=== PATIENT | male | born 1990 ===

== ENCOUNTER 2016-08-09 12:48 | Emergency (ER) | payer OTHER ==
[2016-08-09 12:55] VITALS: BP 137/76; PULSE 85; RESP 16; TEMP 98.1; O2SAT 99
--- NOTE | 2016-08-09 13:02 | ED PDOC ---
Lower Extremity Pain/Injury Time Seen by Provider: 08/09/16 12:54 Chief Complaint (Nursing): Lower Extremity Problem/Injury History Per: Patient Additional Complaint(s): Pt. states for the past week he's had atraumatic R foot pain which is worsened with walking. Pt. states pain is greatest to the top of the foot and on the joint of the 1st toe. Denies trauma, fever, numbness, tingling, rash. Past Medical History Reviewed: Historical Data, Nursing Documentation, Vital Signs Vital Signs: Last Vital Signs Temp 98.1 F 08/09/16 12:51 Pulse 85 08/09/16 12:51 Resp 16 08/09/16 12:51 BP 137/76 08/09/16 12:51 Pulse Ox 99 08/09/16 12:51 - Medical History PMH: HIV - Family History Family History: States: Unknown Family Hx - Immunization History Hx Tetanus Toxoid Vaccination: No Hx Influenza Vaccination: No Hx Pneumococcal Vaccination: No - Home Medications Home Medications: Ambulatory Orders Medication Instructions Recorded Albuterol Sulfate [Proair Hfa] 1 puff IH Q6 PRN #1 inh 05/08/13 Azithromycin [Zithromax Z-Yifan] 250 mg PO DAILY #0 tab 05/08/13 Benzonatate [Tessalon Perles] 200 mg PO TID PRN #30 sgl 05/08/13 Meloxicam [Mobic] 1 - 2 tab PO DAILY PRN #30 tab 08/09/16 - Allergies Allergies/Adverse Reactions: Allergies Allergy/AdvReac Type Severity Reaction Status Date / Time No Known Allergies Allergy Verified 08/09/16 12:51 Review of Systems ROS Statement: Except As Marked, All Systems Reviewed And Found Negative Musculoskeletal: Positive for: Foot Pain Physical Exam - Physical Exam Appears: Positive for: Well, Non-toxic, No Acute Distress Skin: Positive for: Normal Color, Warm. Negative for: Rash Extremity: Positive for: Capillary Refill (< 2 seconds on both feet), Other (R foot with minimal swelling and tenderness on dorsum without warmth, erythema or break in skin integrity; no tenderness, swelling, warmth, or erythema over R 1st MTP.). Negative for: Calf Tenderness (b/l) Neurologic/Psych: Positive for: Alert, Oriented - ECG O2 Sat by Pulse Oximetry: 99 - Progress ED Course And Treament: Uric acid level ordered. Foot x-ray ordered. Disposition - Clinical Impression Clinical Impression: Foot pain - Patient ED Disposition Is Patient to be Admitted: No - Disposition Disposition: Routine/Home Disposition Time: 13:48 Condition: STABLE Prescriptions: Meloxicam [Mobic] 1 - 2 tab PO DAILY PRN #30 tab PRN Reason: Pain Instructions: Arthralgia (ED) Forms: [facility] ED School/Work Excuse Print Language: CZECH
--- NOTE | 2016-08-09 15:04 | RAD ---
PROCEDURE: Right Foot Radiographs. HISTORY: Pain. No history of recent/ related trauma provided COMPARISON: None. FINDINGS: BONES: Normal. No fracture. JOINTS: Normal. SOFT TISSUES: Normal. OTHER FINDINGS: None. IMPRESSION: No significant or acute findings to account for/ related to the clinical presentation.
== END 2016-08-09 13:59 | disposition home or self-care (01) ==
LOC: H.ER 12:48
DX: M79.671 Pain in right foot (principal)

== ENCOUNTER 2017-11-25 03:13 | Emergency (ER) | payer OTHER ==
[2017-11-25 03:42] VITALS: BMI 26.6
[2017-11-25 03:46] VITALS: BP 137/89; PULSE 106; RESP 18; TEMP 98.9; O2SAT 98
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
== END 2017-11-25 06:27 | disposition home or self-care (01) ==
LOC: H.ER 03:13
DX: S01.81XA Laceration without foreign body of other part of head, initial encounter (principal); S09.90XA Unspecified injury of head, initial encounter; S00.83XA Contusion of other part of head, initial encounter; Y04.0XXA Assault by unarmed brawl or fight, initial encounter; Y92.89 Other specified places as the place of occurrence of the external cause